=== PATIENT | male | born 2000 | race Caucasian/White ===

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

== ENCOUNTER 2018-04-25 10:32 | Outpatient (CLI) | payer OTHER | END 2018-04-25 10:33 | disposition home or self-care (01) | LOC: LAB 10:32 | PROVIDERS: ATTEND Pathology Blood Banking & Transfusion Medicine | DX: Z01.89 Encounter for other specified special examinations (principal) | CPT/HCPCS: 36415 ==

== ENCOUNTER 2018-08-13 09:43 | Outpatient (CLI) | payer OTHER | END 2018-08-13 09:44 | disposition EMS.NT | LOC: EMS 09:43 | PROVIDERS: ATTEND Surgery | DX: M25.571 Pain in right ankle and joints of right foot (principal); W11.XXXA Fall on and from ladder, initial encounter; Y99.0 Civilian activity done for income or pay ==

== ENCOUNTER 2018-08-13 11:44 | Emergency (ER) | payer MEDICAID, OTHER ==
--- NOTE | 2018-08-13 12:49 | ED Physician Documentation ---
PD HPI LOWER EXT INJURY - Stated complaint Stated Complaint: R FOOT INJ/GLF - Chief complaint Chief Complaint: Ext Problem - History obtained from History obtained from: Patient - History of Present Illness PD HPI LOW EXT INJURY LOCATION: Right, Foot Type of injury: Fall Where injury occurred: Home (Fell off a roof, right onto the foot. Isolated right ankle injury. No head or neck injury. He is able to walk / bear weight.) Review of Systems Constitutional: denies: Fever, Chills Cardiac: reports: Reviewed and negative Respiratory: reports: Reviewed and negative GI: reports: Reviewed and negative PD PAST MEDICAL HISTORY - Past Medical History Past Medical History: Yes Psych: Depression, Anxiety - Past Surgical History Past Surgical History: No - Present Medications Home Medications: Ambulatory Orders Medication Instructions Recorded Confirmed Hydrocodone/Acetaminophen 1 - 2 each PO Q6H PRN #20 tablet 08/13/18 [Hydrocodon-Acetaminophen 5-325] Knee Scooter 1 unit TD ONCE #1 08/13/18 - Allergies Allergies/Adverse Reactions: Allergies Allergy/AdvReac Type Severity Reaction Status Date / Time No Known Drug Allergies Allergy Verified 08/13/18 11:56 - Social History Does the pt smoke?: Yes Smoking Status: Current every day smoker Does the pt drink ETOH?: Yes Does the pt have substance abuse?: Yes Substance Use and Type: Marijuana - Immunizations Immunizations are current?: Yes - POLST Patient has POLST: No PD ED PE NORMAL - Vitals Vital signs reviewed: Yes - General General: Alert and oriented X 3, No acute distress - HEENT HEENT: PERRL, EOMI - Neck Neck: Supple, no meningeal sign, No bony TTP - Extremities Extremities: Other (Right ankle is quite swollen laterally but more tender medially and over the talus. There is no calcaneal or foot tenderness.) - Neuro Neuro: Alert and oriented X 3, Normal speech Results - Vitals Vitals: Vital Signs - 24 hr 08/13/18 08/13/18 11:48 13:37 Temperature 36.2 C L 36.4 C L Heart Rate 90 79 Respiratory 14 16 Rate Blood Pressure 122/70 120/78 O2 Saturation 100 100 Oxygen O2 Source Room air - Rads (name of study) XR and CT R ankle Radiology: EMP read contemporaneously (Complicated right talus fracture) Procedures - Splint (location) R Leg Splint applied by: Tech Type of splint: Fiberglass, Short leg, Posterior Other: Patient tolerated well, No complications, Neurovascular intact. No: Crutches provided (he has crutches) PD MEDICAL DECISION MAKING - Consults Consults: Consulted (name) (Sudarshan Matute, geriatric nurse practitioner ortho, reviewed XRs, will be helpful to have CT for preop decision making.) Departure - Departure Disposition: 01 Home, Self Care Clinical Impression: Fracture, talus closed Condition: Good Record reviewed to determine appropriate education?: Yes Instructions: ED Fx Foot Follow-Up: [facility] [Provider Group] - Within 3 Days Prescriptions: Hydrocodone/Acetaminophen [Hydrocodon-Acetaminophen 5-325] 1 - 2 each PO Q6H PRN #20 tablet PRN Reason: pain Knee Scooter 1 unit TD ONCE #1 Comments: Keep the splint on and dry, do not walk or bear weight on the right leg. Use the crutches with a knee scooter at all times. Keep it elevated as much as possible. Call the orthopedics office today for to arrange for an appointment. Dr. Matute is aware of your case. . Do not drink or drive while taking narcotic pain medication. Note that many narcotic pain relievers also contain Tylenol/acetaminophen. Please ensure that your total dose of acetaminophen from all sources does not exceed 3 g (3000 mg) per day. You may get constipated while on this medication. Take a stool softener such as Colace twice a day while you are on it. Also add an atis-mjf-rzarwkf laxative such as senna or MiraLAX on any day that you do not have a bowel movement. If you received a narcotic pain medication or sedative while in the emergency department, do not drive for the next 24 hours.
[2018-08-13] MEDS ORDERED: HYDROcod/ACETAM 5/325 MG TABLET PO STA (12:59)
--- NOTE | 2018-08-13 13:24 | XRAY Report ---
Reason: Pain after fall Procedure Date: 08/13/2018 Accession Number: [id number] / [id number] Procedure: XR - Ankle 3 View RT CPT Code: FULL RESULT: EXAM: RIGHT ANKLE RADIOGRAPHY EXAM DATE: 08/13/2018 12:52 PM. CLINICAL HISTORY: Pain after fall. COMPARISON: None. TECHNIQUE: 3 views. FINDINGS: Bones: There is a lateral process of the talar fracture, incompletely characterized. Joints: Normal. No effusion. No subluxations. The ankle mortise is normally aligned. Soft Tissues: Soft tissue swelling around the ankle. IMPRESSION: Lateral talus fracture. [facility] CRITICAL RESULT: The findings were discussed with Dr. Gordon on 08/13/2018 at 1:23 PM.
[2018-08-13 13:38] VITALS: BP 120/78
--- NOTE | 2018-08-13 13:45 | CT Report ---
Reason: R talus frx Procedure Date: 08/13/2018 Accession Number: [id number] / [id number] Procedure: CT - Lower Extremity Right W/O CPT Code: FULL RESULT: EXAM: RIGHT ANKLE/HINDFOOT CT WITHOUT CONTRAST EXAM DATE: 08/13/2018 01:21 PM. CLINICAL HISTORY: Right talus fracture. COMPARISON: ANKLE 3 VIEW RT 08/13/2018 12:36 PM. TECHNIQUE: Thin-section axial images were acquired of the ankle/hindfoot without contrast. Post-processing: Coronal and sagittal reformats. Other: None. In accordance with CT protocol optimization, one or more of the following dose reduction techniques were utilized for this exam: automated exposure control, adjustment of mA and/or KV based on patient size, or use of iterative reconstructive technique. FINDINGS: Bones: Complex comminuted lateral talar process fracture with 3 mm of displacement. The medial aspect of the posterior talar articular facet also shows a fracture. Series 8 image 101, series 9 image 51. Less than 1 mm displacement. Small avulsion injury seen at the expected capsular attachment at the talar neck. Series 6 image 34. Tiny avulsions also seen at the expected location of the anterior talofibular ligament. Series 3 image 92, series 3 image 84 for example. Joints: Moderate to large joint effusion. Musculature: Normal. No fatty atrophy. Other: No distinct tendon entrapment. Peroneal tendons laterally are somewhat swollen, however. Series 4 image 102. Some medial and lateral malleolar swelling. IMPRESSION: 1. Complex comminuted lateral talar process fracture with 3 mm displacement. This corresponds to a grade 2B lateral process talar fracture. 2. Avulsion at the expected attachment of the tibiotalar joint capsule to the talus. 3. Medial aspect of the posterior subtalar articular facet shows a nondisplaced fracture as well. 4. Tiny avulsions at the expected location of the anterior talofibular ligament. 5. Generous amount of soft tissue swelling surrounds the ankle. 6. This combination of injuries is sometimes associated with the name "snowboarder's fracture". [facility]
== END 2018-08-13 13:45 | disposition home or self-care (01) ==
LOC: ED 11:44
DX: S92.141A Displaced dome fracture of right talus, initial encounter for closed fracture (principal); S92.134A Nondisplaced fracture of posterior process of right talus, initial encounter for closed fracture; S93.431A Sprain of tibiofibular ligament of right ankle, initial encounter; S93.491A Sprain of other ligament of right ankle, initial encounter; W13.2XXA Fall from, out of or through roof, initial encounter; F17.200 Nicotine dependence, unspecified, uncomplicated
CPT/HCPCS: 29515; 73610; 73700; 99283; A9270